=== PATIENT | male | born 1930 | race Caucasian/White ===

== ENCOUNTER → 2016-06-18 | Day surgery (SDC) | payer OTHER ==
[~2016-06-18] VITALS: Ht 162.6 cm; Wt 48.2 kg
[~2016-06-18] MED LIST: ACETAMINOPHEN 500 MG CPLT PO PRN; AMLO5TAB2 PO; ASPI81CH PO; BUPIVACAINE HCL PF 0.25% 30 ML VIAL ONE; BUPIVACAINE/EPINEPHRINE 0.25% PF 30 ML VIAL ONE; DEXAMETHASONE SOD PHOS 4 MG/ML VIAL ONE; DO NOT ADM ANY ANTICOAGULANT DRUGS XX PRN; FAMOTIDINE 20 MG/2 ML VIAL ONE; HYDR-3533 PO; INSULIN HUMAN REGULAR 1,000 UNITS/10 ML VIAL SQ PRN; LACTATED RINGER'S 1000 ML IV SCH; LIDOCAINE 1%/EPINEPHrine 1:100,000 SOLN 30 ML VIAL INFIL ONE; METO25TA3 PO; METOPROLOL TARTRATE 25 MG TAB PO PRN; MIDAZOLAM HCL 2 MG/2 ML VIAL ONE; MORPHINE SULFATE 4 MG/ML INJ IV PRN; ONDANSETRON HCL 4 MG/2 ML VIAL IV PRN; ONDANSETRON HCL 4 MG/2 ML VIAL IV PUSH ONE; PROPOFOL 200 MG/20 ML AMP IV ONE; SODIUM CHLORID 0.9% 500 ML IV SCH; ceFAZolin 2 GM PREMIX 50 ML IV SCH; ePHEDrine/NS 50 MG/5 ML SYR IV ONE
[2016-06-18 08:54] VITALS: BP 166/72; PULSE 53; RESP 18; TEMP 97.5; O2SAT 98
--- NOTE | 2016-06-18 11:34 | PD.OP ---
Operative Report Date of Surgery: Jun 18, 2016 Preoperative Diagnosis: desire for PD catheter removal Postoperative Diagnosis: same Procedure: removal PD catheter Anesthesia: local, TIVA Surgeon: Henrique Johnson Insulation Extruder Operator(s): Makeda WILHELM Operation and Findings: removal of PD catheter and two cuffs. EBL less than 5 ml. Henrique Johnson MD Jun 18, 2016 11:34
[2016-06-18 12:56] VITALS: BP 146/63; PULSE 54; RESP 16; O2SAT 95
[2016-06-18 13:32] VITALS: TEMP 97.3
--- NOTE | 2016-06-19 09:32 | MP ---
cc: BARRETT MC M.D. DATE OF SURGERY: 06/18/2016 PREOPERATIVE DIAGNOSIS: Desire for removal of peritoneal dialysis catheter. POSTOPERATIVE DIAGNOSIS: Desire for removal of peritoneal dialysis catheter. OPERATION: Removal peritoneal dialysis catheter. SURGEON Dr. Barrett Mc SYSTEM SAFETY MANAGER: Makeda WILHELM. ANESTHESIA: Local plus TIVA. INDICATIONS This is a pleasant 86-year-old gentleman initially sent to me for peritoneal dialysis catheter placement. He has decided instead after just six weeks to have hemodialysis and desires peritoneal dialysis catheter removal. INTRAOPERATIVE FINDINGS Successful removal peritoneal dialysis catheter and two cloth cuffs. ESTIMATED BLOOD LOSS: Estimated blood loss less than 5 ml. PROCEDURE: The procedure was assisted by my nurse practitioner. The Nurse practitioner's specific skills set was required to assist in appropriate visualization of the anatomy and removal of the peritoneal dialysis catheter and two cuffs. The surgical services assistant was at the back table providing appropriate instrumentation while the nurse practitioner directly assisting me through the entirety of the case. DESCRIPTION OF PROCEDURE IN DETAIL The patient identified as Tavon Hall, taken to the operating room and placed in the supine position. Sequential compression devices placed on bilateral lower extremities. Following IV sedation by Anesthesia abdomen was prepped and draped in usual sterile fashion with Betadine. Time-out procedure was performed. Following completion time-out procedure to everyone's satisfaction within the room 1% lidocaine with epinephrine infiltrated in and around the catheter, from its exit site to where it entered the preperitoneal space and tunneled to the peritoneum. The incision at the peritoneal dialysis catheters location to into the preperitoneal space was made with a scalpel. A hemostat was used to spread, and a Metzenbaum scissor used to divide tissue attached to the two cuffs. Once they have been released the catheter divided proximal to the second cuff and the catheter was brought out through the incision made. Catheter was then withdrawn from peritoneal cavity. The fascia at this level was closed with a running 2-0 Vicryl suture. Irrigation ensued with saline. The hemostasis was assured with electrocautery. The skin incisions were closed with 4-0 Monocryl subcuticular suture. Dressing was applied, Mastisol inch brown Steri-Strips. The patient tolerated the procedure without apparent complication. Sponge, needle and instrument counts were correct at the case. MD Caity Edouard /11:33 AM /9:26 AM
== END | disposition home or self-care (01) ==
LOC: HSDC 08:06
PROVIDERS: ATTEND Surgery Trauma Surgery
DX: Z45.2 Encounter for adjustment and management of vascular access device (principal); N18.6 End stage renal disease; I12.0 Hypertensive chronic kidney disease with stage 5 chronic kidney disease or end stage renal disease; J44.9 Chronic obstructive pulmonary disease, unspecified
CPT/HCPCS: 00730; 49422; 84132; J0690; J1100; J2250; J2405; J3010; J7040

== ENCOUNTER → 2016-08-18 | Day surgery (SDC) | payer OTHER ==
[~2016-08-18] VITALS: Ht 160 cm; Wt 48.6 kg
[~2016-08-18] MED LIST changes: -ACETAMINOPHEN 500 MG CPLT PO PRN; -ASPI81CH PO; -BUPIVACAINE HCL PF 0.25% 30 ML VIAL ONE; +BUPIVACAINE/EPINEPHRINE 0.25% PF 10 ML VIAL INFIL ONE; -BUPIVACAINE/EPINEPHRINE 0.25% PF 30 ML VIAL ONE; +BUPIVACAINE/EPINEPHRINE 0.5% PF 30 ML VIAL ONE; -DEXAMETHASONE SOD PHOS 4 MG/ML VIAL ONE; -FAMOTIDINE 20 MG/2 ML VIAL ONE; +HEPARIN SODIUM - IV 10,000 UNITS/10 ML VIAL ONE; +HEPARIN SODIUM - SQ 10,000 UNITS/ML VIAL ONE; -HYDR-3533 PO; +Hemodialysis Vas Acc Cath PRN Heparin 1000 unit/ml Flush IVF; +Hemodialysis Vas Access Cath PRN NS Lock Flush IVF; -LIDOCAINE 1%/EPINEPHrine 1:100,000 SOLN 30 ML VIAL INFIL ONE; -MORPHINE SULFATE 4 MG/ML INJ IV PRN; -ONDANSETRON HCL 4 MG/2 ML VIAL IV PRN; -ONDANSETRON HCL 4 MG/2 ML VIAL IV PUSH ONE; +PHENYLEPH/NS 1000 MCG/10 ML SYR IV ONE; +SODIUM CHLORIDE 0.9% INJ 100 ML ONE; -ceFAZolin 2 GM PREMIX 50 ML IV SCH; +ceFAZolin INJ 1,000 MG VIAL ONE; +ePHEDrine/NS 25 MG/5 ML SYR IV ONE; -ePHEDrine/NS 50 MG/5 ML SYR IV ONE
[2016-08-18 09:17] VITALS: BP 158/72; PULSE 52; RESP 22; TEMP 97.8; O2SAT 97
[2016-08-18 11:13] LABS: AUTOMATED NEUTROPHIL # 3.2 TH/MM3 (1.8-7.7); BASOPHIL % 0.6 % (0.0-2.0); EOSINOPHIL # 0.4 TH/MM3 (0-0.4); EOSINOPHIL % 6.7 % (0.0-4.0); HEMATOCRIT 39.5 % (39.0-51.0); HEMO FLAGS DIFF FINAL; LYMPH % 24.6 % (9.0-44.0); LYMPHOCYTE # 1.5 TH/MM3 (1.0-4.8); MEAN CELL VOLUME 87.8 FL (80.0-100.0); MEAN CORPUSCULAR HEMOGLOBIN 27.7 PG (27.0-34.0); MEAN CORPUSCULAR HGB CONC 31.5 % (32.0-36.0); MONO % 15.5 % (0.0-8.0); NEUT % 52.6 % (16.0-70.0); PLATELET COUNT 149 TH/MM3 (150-450); RED CELL DISTRIBUTION WIDTH 16.9 % (11.6-17.2); WHITE BLOOD COUNT 6.1 TH/MM3 (4.0-11.0)
[2016-08-18 11:19] LABS: BICARBONATE 22.3 MEQ/L (21.0-32.0); POTASSIUM 4.6 MEQ/L (3.5-5.1)
[2016-08-18 15:20] VITALS: BP_DIAS 77; PULSE 67; RESP 18; TEMP 97.8; O2SAT 94
--- NOTE | 2016-08-23 17:49 | MP ---
cc: JASIEL WAHL M.D., JOO SUTTON, JAMES DATE OF SURGERY August 18, 2016 PREOPERATIVE DIAGNOSIS Chronic kidney disease with need for permanent hemodialysis access. POSTOPERATIVE DIAGNOSIS Chronic kidney disease with need for permanent hemodialysis access. OPERATIVE PROCEDURE Right brachial basilic AV fistula creation. SURGEON Morris Martinez MD STUDIO GRIP NAWAF Erazo ANESTHESIA Local MAC DESCRIPTION OF PROCEDURE With the patient in the supine position IV sedation was induced, the right arm prepped with Betadine and draped in a sterile fashion. One gram of Ancef was administered intravenously and following a protocol time-out, the skin and subcutaneous tissue along the medial antecubital area infiltrated with 0.5% Marcaine with epinephrine. An oblique 4 cm incision was performed along the course of the basilic vein just distal to and slightly across the antecubital level through which the basilic vein and brachial artery were circumferentially mobilized. The vein was ligated distally with 4-0 silk, spatulated on end, flushed with heparinized saline and occluded with a Yasargil clip. The brachial artery was occluded proximally and distally with Yasargil clips. A vertical 4-mm arteriotomy was performed, the artery flushed proximally and distally with heparinized saline. An end-to-side anastomosis was performed between the vein and arteriotomy with continuous 7-0 Prolene. The occluding Yasargil clips were removed reestablishing pulsatile flow within the brachial artery as well as into the basilic vein. Biphasic Doppler flow was confirmed within the radial artery along with normal perfusion within the right hand. Strict hemostasis was achieved. The incision was closed with interrupted subcutaneous 4-0 Monocryl, continuous subcuticular 5-0 Monocryl. Reinforced with Steri-Strips and covered with sterile gauze. Instrument, needle, sponge count correct x2. No operative complications. The patient returned to the recovery room in stable condition having tolerated procedure well. Carlos A Martinez MD JTS/KK /4:05 PM /5:40 PM
== END | disposition home or self-care (01) ==
LOC: HSDC 09:03
PROVIDERS: ATTEND Surgery Vascular Surgery
DX: E11.22 Type 2 diabetes mellitus with diabetic chronic kidney disease (principal); N18.4 Chronic kidney disease, stage 4 (severe); I10 Essential (primary) hypertension
CPT/HCPCS: 01844; 36821; 80048; 85025; J0690; J1644; J2250; J2370; J3010; J7040

== ENCOUNTER → 2016-11-24 | Day surgery (SDC) | payer OTHER ==
[~2016-11-24] VITALS: Ht 160 cm; Wt 50.2 kg
[~2016-11-24] MED LIST changes: -BUPIVACAINE/EPINEPHRINE 0.25% PF 10 ML VIAL INFIL ONE; +CHLORHEXIDINE GLUCONATE 2 % 1 PACK (2 CLOTHS) TOPICAL PRN; +DEXAMETHASONE SOD PHOS 4 MG/ML VIAL ONE; -DO NOT ADM ANY ANTICOAGULANT DRUGS XX PRN; +FAMOTIDINE 20 MG/2 ML VIAL ONE; -HEPARIN SODIUM - IV 10,000 UNITS/10 ML VIAL ONE; -Hemodialysis Vas Acc Cath PRN Heparin 1000 unit/ml Flush IVF; -Hemodialysis Vas Access Cath PRN NS Lock Flush IVF; +KETAMINE HCL 500 MG/5 ML VIAL ONE; +LACTATED RINGER'S 1000 ML IV PRN; -LACTATED RINGER'S 1000 ML IV SCH; -MIDAZOLAM HCL 2 MG/2 ML VIAL ONE; -PHENYLEPH/NS 1000 MCG/10 ML SYR IV ONE; +POVIDONE IODINE 5% (ANTISEPSIS KIT) 4 APPLICATIONS EACH NARE PRN; +SODIUM CHLORID 0.9% 500 ML IV PRN; -SODIUM CHLORID 0.9% 500 ML IV SCH; -SODIUM CHLORIDE 0.9% INJ 100 ML ONE; +ceFAZolin 1,000 MG/NS 100 ML IV SCH; -ceFAZolin INJ 1,000 MG VIAL ONE; -ePHEDrine/NS 25 MG/5 ML SYR IV ONE
[2016-11-24 06:46] VITALS: BP 173/67; PULSE 57; RESP 24; TEMP 97; O2SAT 99
[2016-11-24 10:44] VITALS: BP 160/59; PULSE 66; RESP 16; TEMP 96.9; O2SAT 99
--- NOTE | 2016-11-25 12:36 | MP ---
cc: IRAIDA MARTINEZ DATE OF SURGERY: 11/24/2016 PREOPERATIVE DIAGNOSIS Chronic kidney disease - needs permanent hemodialysis access. Matured, deep right brachiobasilic AV fistula. POSTOPERATIVE DIAGNOSIS Chronic kidney disease - needs permanent hemodialysis access. Matured, deep right brachiobasilic AV fistula. PROCEDURE Transposition right brachiobasilic AV fistula. SURGEON Iraida Martinez MD RISK DEVELOPER NAWAF Erazo ANESTHESIA Local MAC. DESCRIPTION OF OPERATIVE PROCEDURE With the patient in the supine position and under IV sedation the right arm, axilla and shoulder were prepped with Betadine and draped in a sterile fashion. Following a protocol time-out, the skin and subcutaneous tissue along the proposed incisional area was preemptively infiltrated with 0.5% Marcaine with epinephrine. A curvilinear incision was performed along the course of the arterialized basilic vein. A superficial skin flap was dissected superiorly. The fascia was incised. The basilic vein was mobilized free of surrounding tissues, venous collaterals isolated, ligated in continuity with free ties of 4-0 Silk and hemoclips prior to collateral division. The fascia was reapproximated deep to the superficialized vein with continuous 4-0 Monocryl. The skin was reapproximated with interrupted subcutaneous 4-0 Monocryl, continuous subcuticular 5-0 Monocryl. Steri-Strips and sterile dressing applied. There were no operative complications. Instrument, needle, sponge count correct x2. The patient returned to the recovery room in stable condition having tolerated the procedure well. Iraida Martinez MD JTS/TLL /5:36 PM /12:32 PM
== END | disposition home or self-care (01) ==
LOC: HSDC 05:46
PROVIDERS: ATTEND Surgery Vascular Surgery
DX: I12.9 Hypertensive chronic kidney disease with stage 1 through stage 4 chronic kidney disease, or unspecified chronic kidney disease (principal); N18.9 Chronic kidney disease, unspecified; E11.21 Type 2 diabetes mellitus with diabetic nephropathy; E11.22 Type 2 diabetes mellitus with diabetic chronic kidney disease; D63.1 Anemia in chronic kidney disease; I25.10 Atherosclerotic heart disease of native coronary artery without angina pectoris; J44.9 Chronic obstructive pulmonary disease, unspecified; Z87.891 Personal history of nicotine dependence
CPT/HCPCS: 36819; 84132; J0690; J1100; J1644; J7040